=== PATIENT | male | born 1970 | race Hispanic/Latino ===

== ENCOUNTER 2018-12-20 02:19 | Emergency (ER) | payer OTHER ==
[2018-12-20 02:56] LABS: RAPID GROUP A STREP NEGATIVE (NEGATIVE)
[2018-12-20] MEDS ORDERED: OSELTAMIVIR PHOSPHATE 75 MG CAP ONE (03:55)
[2018-12-20] MEDS ORDERED: IBUPROFEN 400 MG TABLET ONE (03:55)
== END 2018-12-20 04:02 ==
LOC: EDH 02:19
DX: J02.9 Acute pharyngitis, unspecified (principal); Z90.49 Acquired absence of other specified parts of digestive tract
CPT/HCPCS: 87804; 87880